=== PATIENT | male | born 1940 | race Caucasian/White ===

== ENCOUNTER → 2017-12-29 12:29 | Outpatient (CLI) | payer MEDICARE, OTHER, SELFPAY ==
[2017-12-29 14:25] LABS: AST(SGOT) 24 U/L (15-37); Alanine Aminotransfer ALT/SGPT 30 U/L (16-61); Albumin, Serum 3.5 g/dL (3.2-5.0); Alkaline Phosphatase 61 U/L (45-117); Bilirubin, Direct 0.11 mg/dL (0.00-0.30); Cholesterol 171 mg/dL (200); Globulin 2.8 g/dL (2.2-4.2); High Density Lipoprotein 38 mg/dL; Protein, Total 6.3 g/dL (6.4-8.2); Triglycerides 140 mg/dL; Very Low Density Lipoprotein 28 mg/dL (5-40)
== END ==
PROVIDERS: Family Provider Internal Medicine; PCP Internal Medicine; Visit Provider Physician Assistant Medical
DX: E78.5 Hyperlipidemia, unspecified (principal); Z79.899 Other long term (current) drug therapy
CPT/HCPCS: 36415; 80061; 80076

== ENCOUNTER → 2021-01-07 11:33 | Outpatient (CLI) | payer MEDICARE, OTHER, SELFPAY ==
[2017-12-28 15:17] VITALS: BMI 27.3
--- NOTE | 2021-01-07 11:41 | RAD_ITS ---
STUDY: X-RAY CHEST REASON FOR EXAM: Male, 80 years old. 2 week history of persistent cough. TECHNIQUE: PA and lateral views of the chest. COMPARISON: Comparison is made with prior study dated 03/05/2016. FINDINGS: There is elevation of the right hemidiaphragm. Increased markings at the right lung base with evidence of bronchiectasis in the right infrahilar region most likely secondary to prior radiation. Stable appearance of the left lung base. Blunting of the right costophrenic angle. Normal size heart. A left-sided dual-chamber pacemaker is seen. Normal mediastinum and shala. Normal visualized pulmonary arteries. There is atherosclerotic calcification of the aortic arch with tortuosity. Normal visualized thoracic spine. Normal visualized ribs, clavicles, and shoulders. There is no demonstrated abnormality of the visualized soft tissue structures of the upper abdomen. 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 Electronically Signed: Rojas Farris MD at 12:27 EDT , Service support ,
== END ==
PROVIDERS: PCP Internal Medicine; Referring Provider Internal Medicine; Visit Provider Internal Medicine
DX: R05 Cough (principal)
CPT/HCPCS: 71046

== ENCOUNTER → 2021-01-29 07:25 | Outpatient (CLI) | payer MEDICARE, OTHER, SELFPAY ==
--- NOTE | 2021-01-29 07:28 | CT_ITS ---
STUDY: CT CHEST WITH CONTRAST REASON FOR EXAM: Male, 80 years old. ABN CHEST XRAY. History of B-cell lymphoma. RADIATION DOSAGE (If Supplied By Facility): CTDIvol = ( 14.51 ) mGy, DLP = ( 599.66 ) mGycm TECHNIQUE: Transaxial imaging was performed following intravenous administration of IV 100mL Isovue-300. Multiplanar coronal and sagittal images were reformatted. Individualized dose optimization techniques were used for this CT. COMPARISON: Comparison is made with prior study dated 06/20/2016. FINDINGS: Stable mild degree of the exchanges. Stable volume loss with atelectasis in the posterior medial segment of the right lower lobe. Mild degree of volume loss in the right middle lobe as well. There has been no change. There is no demonstrated pleural abnormality. A left-sided dual-chamber pacemaker is seen. There are multiple small lymph nodes within the mediastinum, which are normal in size and morphology most compatible with reactive lymph hyperplasia. Normal hilar regions. Normal enhanced pulmonary arteries. There is atherosclerotic calcification of the aortic arch with tortuosity and elongation of the aortic arch and descending thoracic aorta. There are degenerative changes of the thoracic spine. There is no demonstrated abnormality of the visualized upper abdomen. CT/Chest WITH Contrast IMPRESSION: Stable examination. Electronically Signed: Rojas Farris MD at 15:16 EDT , Service support ,
[2021-01-29 07:45] LABS: CREATININE FINGERSTICK < 0.6 mg/dL (0.70-1.30); EGFR FINGERSTICK > 60.0000 mL/min (>60)
--- NOTE | 2021-01-29 09:42 | PFTCOMP_ITS ---
COMPLETE PULMONARY FUNCTION TEST INTERPRETATION Brief HPI: Patient is a 80 year old male, currently under the care of Dr. Anderson, who presents to [facility] for complete pulmonary function tests secondary to diagnosis of abnormal chest x-ray. Respiratory therapist reports good effort and reproducible results. Interpretation: Forced expiration spirometry shows a mild large airways obstructive ventilatory defect with an FEV1 of 70% predicted. There is no significant bronchodilator response by strict ATS criteria. Spirograms are of good quality and plateau slowly, indicating slowly emptying areas of the lungs. The respiratory flow volume loop shows decreased expiratory flow rates at all lung volumes consistent with airway obstruction. Lung volumes by body plethysmography show a decreased total lung capacity at 4.74 L, 80% predicted. All other lung volumes are reduced symmetrically. Diffusion capacity by carbon monoxide is normal at 77% predicted. The airway resistance is normal. Compared to previous pulmonary function tests from 12/04/2016, there is been a significant reduction in FVC and FEV1. Impression: Mild mixed ventilatory defect with some worsening compared to 2017
== END ==
PROVIDERS: PCP Internal Medicine; Referring Provider Internal Medicine; Visit Provider Internal Medicine
DX: R93.89 Abnormal findings on diagnostic imaging of other specified body structures (principal)
CPT/HCPCS: 71260; 94060; 94726; 94729